=== PATIENT | female | born 1995 | race Caucasian/White ===

== ENCOUNTER 2019-04-25 13:11 | Emergency (ER) | payer OTHER, SELFPAY ==
[2019-04-25 13:18] VITALS: BP 124/65; PULSE 93; RESP 20; TEMP 36.2; O2SAT 99
--- NOTE | 2019-04-25 13:46 | ED.URI ---
HPI - URI/Sore Throat General Chief Complaint: Upper Respiratory Infection Stated Complaint: FEVER/COUGH Source: patient and RN notes reviewed Mode of arrival: ambulatory Limitations: no limitations History of Present Illness HPI Narrative: The patient --ex-smoker/nondrinker in family with smokers and pets [cats/dogs]-presents with 1/2-week history of congestion, scratchy sore throat, and cough. No earache, wheeze, chest pain, sputum changes; symptoms are mild, worse upon awakening in the morning Related Data Allergies Allergy/AdvReac Type Severity Reaction Status Date / Time No Known Allergies Allergy Verified 04/25/19 13:17 Review of Systems Review of Systems: Narrative: General/Constitutional: No weight loss,fever Eyes: N0: Redness,discharge Ears/Nose/Throat: No: Epistaxis,ear discharge Respiratory: Denies: Hemoptysis Gastrointestinal: No Vomiting, Bleeding-rectal Skin: No Lumps, eruption Neurologic: No Focal Weakness,Sz Hematologic: Denies: Petechiae/Purpura Psychiatric: No: Suicida ideationl All Other Systems: Reviewed and Negative PMFSH Comments At time of signature, agree with nursing past medical, surgical, social and family history. There is no relevant family history pertinent to the presenting complaint Exam Narrative: Exam Narrative: General Appearance: Well appearing, Obese/ Well nourished EYE: PERRLA, Conjunctiva clear Ears: Auditory canal normal, TM normal Nose: Rhinorrhea, Mucousal erythema Mouth/Throat: MM moist, Uvula midline, Pharyngeal erythema Neck: Supple, No adenopathy Respiratory: No respiratory distress, Breath sounds equal, Clear to auscultation Cardiovascular: RRR, No JVD Musculoskeletal: Non tender, Normal strength Skin: Warm, Dry Neurological: A&O x3, CN II-XII intact Psychiatric: Normal mood, Normal affect Course Vital Signs Vital signs: Vital Signs Temperature 97.1 F L 04/25/19 13:18 Pulse Rate 93 04/25/19 13:18 Respiratory Rate 04/25/19 13:18 Blood Pressure 124/65 04/25/19 13:18 Pulse Oximetry 99 04/25/19 13:18 Temperature 97.1 F L 04/25/19 13:18 Pulse Rate 93 04/25/19 13:18 Respiratory Rate 04/25/19 13:18 Blood Pressure 124/65 04/25/19 13:18 Pulse Oximetry 99 04/25/19 13:18 Discharge Plan Discharge Clinical Impression: Upper respiratory infection Qualifiers: URI type: acute laryngotracheitis Qualified Code(s): J04.2 - Acute laryngotracheitis Patient Disposition: Home, Self-Care Condition: Stable Instructions: Antibiotic Form, Acute Bronchitis (ED) Prescriptions: New azithromycin 250 mg tablet See Rx Instructions .ROUTE .COMPLEX Qty: 6 RF: 0 codeine-guaifenesin 10-100 mg/5 mL liquid 7.5 ml PO Q6H PRN (Reason: cough) Qty: 118 RF: 0 benzonatate [Tessalon Perles] 100 mg capsule 100 mg PO TID Qty: 20 RF: 1 Interventions: Discharge Disposition Last Done: 04/25/19 13:41 Follow-up/Referrals: PHYSICIAN,WELFARE CENTRE MANAGER [Primary Care Provider] - Stand Alone Forms: Work/School Release IP Discharge Date/Time: 04/25/19 13:44
== END 2019-04-25 13:44 | disposition home or self-care (01) ==
PROVIDERS: Emergency Provider Emergency Medicine
DX: J04.2 Acute laryngotracheitis (principal); Z87.891 Personal history of nicotine dependence
CPT/HCPCS: 99213; G0463

== ENCOUNTER 2020-03-08 08:39 | Emergency (ER) | payer OTHER, SELFPAY ==
--- NOTE | 2020-03-08 08:44 | ED.GENADULT ---
HPI - General Adult General Chief complaint: Dental/Oral Stated complaint: mouth pain Time Seen by Provider: 03/08/20 08:44 Source: patient Mode of arrival: ambulatory Limitations: no limitations History of Present Illness HPI narrative: 24-year-old female patient presents to the [facility] with complaints of left upper dental pain for the past 3 days. Patient states that she has been taking ibuprofen as well as using [id number] Orajel to help with the pain. Patient states she does have history of dental infections and bad teeth. Patient states that she does have an appointment with her dentist but not until next month. Denies any fevers, body aches or chills. Denies any swelling to the cheek. Related Data Allergies Allergy/AdvReac Type Severity Reaction Status Date / Time No Known Allergies Allergy Verified 03/08/20 08:51 Review of Systems Review of Systems: Narrative: CONSTITUTIONAL: Denies fever, chills, or sweats. EYES: Denies visual changes, redness, or discharge. ENT: Denies rhinorrhea, congestion, sore throat, or otalgia. Positive left upper dental pain x3 days CARDIOVASCULAR: Denies chest pain, palpitations, or edema. RESPIRATORY: Denies cough or dyspnea. GASTROINTESTINAL: Denies abdominal pain, nausea, vomiting, or diarrhea. GENITOURINARY: Denies dysuria or hematuria. SKIN: Denies rash or itching. MUSCULOSKELETAL: Denies back pain, joint pain, or myalgia. NEUROLOGIC: Denies headache, numbness, or weakness. PSYCHIATRIC: Denies anxiety or depression. PMFSH Social History Social History Smoking status: Former smoker Tobacco type: cigarettes Second hand tobacco smoke exposure: Yes Alcohol intake: current Substance use: current Substance use type: marijuana Comments At the time of my signature I agree with nursing past medical history, surgical, social, and family history. There is no relevant family history pertinent to the presenting complaint. Exam Narrative: Exam Narrative: GENERAL: Well-appearing, well-nourished, and in no acute distress. HEAD: Normocephalic, atraumatic. EYES: PERRLA and EOMI. ENT: Nares clear, no rhinorrhea or epistaxis. Mucous membranes moist. Patient has a left upper back molar that is broken and does have some surrounding erythema and swelling. It is tender to the touch. No obvious swelling noted to the cheek. No obvious abscesses or drainage noted at this time. NECK: Supple. No lymphadenopathy CHEST: Clear to auscultation. No respiratory distress. HEART: Regular rate and rhythm. No murmur heard. Normal peripheral pulses. ABDOMEN: Soft, nontender, nondistended, normal active bowel sounds. EXTREMITIES: Normal range of motion. No edema. SKIN: Warm, dry, no rash. NEURO: No focal deficits. Alert and oriented x3. Course Vital Signs Vital signs: Vital Signs Temperature 36.3 C L 03/08/20 08:46 Pulse Rate 78 03/08/20 08:46 Respiratory Rate 16 03/08/20 08:46 Blood Pressure 138/77 03/08/20 08:46 Pulse Oximetry 100 03/08/20 08:46 Temperature 36.3 C L 03/08/20 08:46 Pulse Rate 78 03/08/20 08:46 Respiratory Rate 16 03/08/20 08:46 Blood Pressure 138/77 03/08/20 08:46 Pulse Oximetry 100 03/08/20 08:46 Vital signs reviewed. The patient has been informed that they may have pre-hypertension or Hypertension based on a BP reading in the department. I recommend that the patient call the primary care provider listed on their discharge instructions or a physician of their choice this week to arrange follow up for further evaluation of possible pre-hypertension or Hypertension Medical Decision Making Differential Diagnosis Differential Diagnosis: Differential diagnosis: Dental caries, periodontal disease, avulsed tooth, tooth infections, mandibular infection, Naif's angiana, upper tooth infection, dry socket, gingivitis, acute necrotizing ulcerative gingivitis, sialolithiasis. Plan of car
[2020-03-08 08:46] VITALS: BP 138/77; PULSE 78; RESP 16; TEMP 36.3; O2SAT 100
== END 2020-03-08 09:10 | disposition home or self-care (01) ==
PROVIDERS: Emergency Provider Nurse Practitioner Family
DX: K02.9 Dental caries, unspecified (principal); Z87.891 Personal history of nicotine dependence
CPT/HCPCS: 99213; G0463